=== PATIENT | male | born 1985 | race Caucasian/White ===

== ENCOUNTER 2023-10-26 21:28 | Emergency (ER) | payer OTHER ==
[~2023-10-26] VITALS: Ht 172.7 cm; Wt 70.8 kg
[2023-10-26 21:38] VITALS: BP 133/76; PULSE 90; RESP 20; TEMP 98; O2SAT 98
[2023-10-26 23:00] VITALS: BP 133/76; PULSE 90; RESP 20; TEMP 98; O2SAT 98
== END 2023-10-26 23:00 ==
LOC: MED 21:28
DX: V49.88XA Car occupant (driver) (passenger) injured in other specified transport accidents, initial encounter; Y93.89 Activity, other specified; Y92.89 Other specified places as the place of occurrence of the external cause; Y99.8 Other external cause status
CPT/HCPCS: 99283